=== PATIENT | female | born 1995 | race African-American/Black ===

== ENCOUNTER 2020-12-09 13:32 | Emergency (ER) | payer MEDICAID ==
[~2020-12-09] VITALS: Ht 167.6 cm; Wt 69.0 kg
[2020-12-09 16:31] LABS: HCG SCREEN POSITIVE
[2020-12-09 17:14] VITALS: BP 125/78
== END 2020-12-09 17:15 | disposition home or self-care (01) ==
LOC: ER 13:32
DX: O20.0 Threatened abortion (principal); Z3A.01 Less than 8 weeks gestation of pregnancy
CPT/HCPCS: 36415; 76801; 81025; 84702; 84703; 86850; 86900; 99284

== ENCOUNTER 2021-03-08 11:29 | Inpatient (IN) | payer MEDICAID, OTHER ==
[~2021-03-08] VITALS: Ht 152.4 cm; Wt 60.1 kg
[2021-03-08] MEDS ORDERED: ONDANSETRON HCL 4MG/2ML INJ IV ONE (12:15)
[2021-03-08] MEDS ORDERED: SODIUM CHLORIDE 0.9% 1,000 ML IV ONE (13:30)
[2021-03-08 15:23] LABS: HEMATOCRIT. 32.2 % (36.0-48.0); HEMOGLOBIN. 10.4 g/dL (12.0-16.0); MEAN CORPUSCULAR HEMOGLOBIN 28.5 pg (28.0-32.0); MEAN CORPUSCULAR VOLUME 88.4 fL (81.0-99.0); MEAN PLATELET VOLUME 8.8 fl (7.4-10.4); PLATELET 266 x1000/uL (130-400); RED BLOOD CELL COUNT 3.64 mill/uL (4.2-5.4); RED CELL DISTRIBUTION WIDTH 13.8 % (11.6-14.6)
[2021-03-08 15:26] LABS: CHLORIDE 107 mEq/L (98-107)
[2021-03-08 15:50] LABS: B-HCG QUANTITATIVE 13897 mIU/mL (<3)
[2021-03-08 16:09] LABS: CLARITY URINE CLOUDY (CLEAR); COLOR URINE YELLOW (YELLOW); KETONES URINE 4+ (NEGATIVE); LEUKOCYTE ESTERASE URINE NEGATIVE (NEGATIVE); NITRITE URINE NEGATIVE (NEGATIVE); OCCULT BLOOD URINE NEGATIVE (NEGATIVE); PH URINE 6.5 (4.5-8.0); PROTEIN URINE 1+ (NEGATIVE); SPECIFIC GRAVITY URINE 1.025 (1.005-1.030); UROBILINOGEN URINE 0.2 E.U./dL (0.2-1.0)
[2021-03-08 16:17] LABS: PLATELET ESTIMATE NORMAL
[2021-03-08] MEDS ORDERED: METOCLOPRAMIDE HCL 10MG/2ML VIAL IV ONE (17:00)
[2021-03-08] MEDS ORDERED: POTASSIUM CHLORIDE INJ 40 MEQ in DEXT 5% WATER 250 ML IV NR (19:30)
[2021-03-08] MEDS ORDERED: POTASSIUM CHLORIDE INJ 40 MEQ in DEXT 5% WATER 500 ML IV ONE (19:30)
[2021-03-08] MEDS ORDERED: NITROFURANTOIN 100MG M/M CAPSULE PO NR (20:15)
[2021-03-08 23:48] VITALS: BP 141/65
[2021-03-09] VITALS: BP 141/65
[2021-03-09] MEDS ORDERED: LACTATED RINGERS 1,000 ML IV SCH (02:30)
[2021-03-09] MEDS: ONDANSETRON HCL 4MG/2ML INJ IV PRN (03:03)
[2021-03-09] MEDS ORDERED: MVI, ADULT NO.1 10 ML, FOLIC ACID 1 MG, THIAMINE HCL 100 MG in SODIUM CHLORIDE 0.9% 1,0... IV SCH (03:30)
[2021-03-09 04:00] VITALS: BP 135/60
[2021-03-09] MEDS ORDERED: METO5TAB2 PO (04:34)
[2021-03-09] MEDS ORDERED: PYRI-9 PO (04:34)
[2021-03-09 08:00] VITALS: BP 123/74
[2021-03-09] MEDS ORDERED: ACETAMINOPHEN 650MG SUPP PR PRN (08:00)
[2021-03-09] MEDS: FAMOTIDINE 20MG/2ML VIAL IV SCH ×2 (09:26→20:30)
[2021-03-09] MEDS: DEXT 5%/LACTATED RINGERS 1,000 ML IV SCH ×3 (09:27→20:32)
[2021-03-09 09:28] LABS: HEMATOCRIT. 29.7 % (36.0-48.0); HEMOGLOBIN. 10.1 g/dL (12.0-16.0); MEAN CORPUSCULAR HEMOGLOBIN 29.6 pg (28.0-32.0); MEAN CORPUSCULAR VOLUME 87.3 fL (81.0-99.0); MEAN PLATELET VOLUME 7.6 fl (7.4-10.4); PLATELET 298 x1000/uL (130-400); RED BLOOD CELL COUNT 3.41 mill/uL (4.2-5.4); RED CELL DISTRIBUTION WIDTH 13.6 % (11.6-14.6)
[2021-03-09] MEDS ORDERED: POTASSIUM CHLORIDE IV SCH (09:30)
[2021-03-09] MEDS ORDERED: LACTATED RINGERS IV SCH (09:30)
[2021-03-09] MEDS ORDERED: DEXT IV SCH (09:30)
[2021-03-09 09:40] LABS: CHLORIDE 110 mEq/L (98-107)
[2021-03-09 12:00] VITALS: BP 161/83
[2021-03-09 16:00] VITALS: BP 114/68
[2021-03-09 16:15] LABS: PLATELET ESTIMATE NORMAL
[2021-03-09 20:00] VITALS: BP 144/73
[2021-03-09] MEDS: METOCLOPRAMIDE HCL 10MG/2ML VIAL IV PRN (20:31)
[2021-03-10] VITALS: BP 128/54
[2021-03-10] MEDS: METOCLOPRAMIDE HCL 10MG/2ML VIAL IV PRN (03:10)
[2021-03-10] MEDS: DEXT 5%/LACTATED RINGERS 1,000 ML IV SCH ×3 (03:32→17:15)
[2021-03-10 04:00] VITALS: BP 112/57
[2021-03-10] MEDS ORDERED: DIPHENHYDRAMINE 25MG CAPSULE PO PRN (07:30)
[2021-03-10 08:00] VITALS: BP 154/87
[2021-03-10] MEDS: FAMOTIDINE 20MG/2ML VIAL IV SCH ×2 (08:59→21:59)
[2021-03-10] MEDS: METOCLOPRAMIDE HCL 10MG/2ML VIAL IV SCH ×3 (11:10→23:15)
[2021-03-10 12:00] VITALS: BP 151/69
[2021-03-10 16:00] VITALS: BP 152/82
[2021-03-10] MEDS: ONDANSETRON HCL 4MG/2ML INJ IV PRN ×2 (16:21→22:05)
[2021-03-10] MEDS ORDERED: CITRIC ACID/SODIUM CITRATE SOLN 30ML UDC PO NR (16:45)
[2021-03-10 20:00] VITALS: BP 148/89
[2021-03-11] VITALS: BP 145/86
[2021-03-11] MEDS: DEXT 5%/LACTATED RINGERS 1,000 ML IV SCH ×2 (01:58→07:13)
[2021-03-11 04:00] VITALS: BP 142/75
[2021-03-11] MEDS: METOCLOPRAMIDE HCL 10MG/2ML VIAL IV SCH ×2 (05:10→11:37)
[2021-03-11 08:00] VITALS: BP 129/80
[2021-03-11] MEDS: FAMOTIDINE 20MG/2ML VIAL IV SCH (08:43)
[2021-03-11 11:27] VITALS: BP 103/66
[2021-03-11 12:27] LABS: HEMATOCRIT 26.7 % (36.0-48.0); MEAN CORPUSCULAR HEMOGLOBIN 29.3 pg (28.0-32.0); MEAN CORPUSCULAR VOLUME 87.4 fL (81.0-99.0); PLATELET 251 x1000/uL (130-400); RED BLOOD CELL COUNT 3.06 mill/uL (4.2-5.4); RED CELL DISTRIBUTION WIDTH 13.4 % (11.6-14.6)
== END 2021-03-11 13:25 | disposition home or self-care (01) | DRG 566 ==
LOC: ER 11:29 → ENRESERV 22:43 → 6EST 03-09 00:07
PROVIDERS: ADMIT Obstetrics & Gynecology; ATTEND Obstetrics & Gynecology
DX: O21.0 Mild hyperemesis gravidarum (principal); O99.112 Other diseases of the blood and blood-forming organs and certain disorders involving the immune mechanism complicating pregnancy, second trimester; Z20.822 Contact with and (suspected) exposure to COVID-19; D72.829 Elevated white blood cell count, unspecified; Z3A.19 19 weeks gestation of pregnancy; Z88.1 Allergy status to other antibiotic agents
CPT/HCPCS: 36415; 76805; 80053; 81003; 84702; 85025; 85027; 87426; 99285; C1893; J2405; J2765; J3411; J3480; J3490; J7030; J7060; J7121